=== PATIENT | female | born 1930 | race Caucasian/White ===

== ENCOUNTER 2017-09-15 05:48 | Day surgery (SDC) | payer OTHER ==
[~2017-09-15] VITALS: Ht 165.1 cm; Wt 70.0 kg
[~2017-09-15 05:48] MED LIST: ASPI325EC PO; BENZ100A PO; CILO50 PO; FLUSAL2505 IH; LEVFLO500 PO; LISHYD2025 PO; LOVA20 PO; MECL25 PO; Norco 5-325 Ta1 EACH PO; TOLT4 PO
[2017-09-15] MEDS ORDERED: ATOR20 PO (06:26)
== END 2017-09-15 08:15 | disposition home or self-care (01) ==
LOC: MHTC 05:48
PROC: 0JPT02Z Removal of Monitoring Device from Trunk Subcutaneous Tissue and Fascia, Open Approach (ICD-10-PCS; principal; 2017-09-15)
DX: Z45.09 Encounter for adjustment and management of other cardiac device (principal); R55 Syncope and collapse; I10 Essential (primary) hypertension; I73.9 Peripheral vascular disease, unspecified
CPT/HCPCS: 33284

== ENCOUNTER 2018-11-16 10:52 | Day surgery (SDC) | payer OTHER ==
[~2018-11-16] VITALS: Ht 165.1 cm; Wt 68.0 kg
[~2018-11-16 10:52] MED LIST changes: +ALBU90OI INH; +ATOR20 PO; +Fe C Tablet1 EACH PO; +NAPR220 PO; +OSTERA TABLET1 EACH PO
--- NOTE | 2018-11-16 15:02 | NUR ---
ASSUMED CARE: PT BROUGHT FROM [facility] [place] WITH BILATERAL GROIN SITES. LEFT WITH HERB DRESSING, RIGHT WITH ANGIOCELE. BOTH SITES SOFT, NONTENDE, NO SIGNS OF HEMATOMA AT THIS TIME. CALL TO DR LINN FOR CLARIFICATION OF ORDERS. [facility] STATES PT IS EXTENDED RECOVERY AND THEY WILL BRING FURTHER ORDERS. NO FURTHER NEEDS AT THIS TIME.
--- NOTE | 2018-11-16 15:37 | NUR ---
PT'S DAUGHTER ARRIVED AND WAS GIVEN UPDATE ON PLAN FOR RECOVERY AND DISCHARGE. PT'S GROIN SITES REMAIN SOFT, NONTENDER, NO HEMATOMA. VSS
--- NOTE | 2018-11-16 16:32 | NUR ---
NOTED NEW ORDERS FROM DR LINN. CALL TO CONTROL ROOM FOR CLARIFICATION. SPOKE WITH DR LINN WHO STATES HE WILL BE BY TO SEE PT IN A FEW HOURS. DISCUSSED WITH PT AND DAUGHTER. PT'S SITES REMAIN CLEAN WITH NO SIGN OF SWELLING OR HEMATOMA. PULSES NOTED BILATERAL FEET. FIELD AGRONOMIST AWARE
--- NOTE | 2018-11-16 18:37 | NUR ---
PT SAT UP IN BED AFTER FOUR HOURS AND ATE DINNER. SHE THEN WALKED AROUND THE ROOM WITH ASSISTANCE OF THE WALKER. PT AND DAUGHTER WAITING IN ROOM FOR DR LINN TO COME SEE PT DUE TO HIM STATING HE WANTED TO SEE HER PRIOR TO DISCHARGE
--- NOTE | 2018-11-16 19:15 | NUR ---
ASSUMED CARE RECEIVED REPORT FROM [facility]. PT IS COMPLETELY ALERT AND ORIENTED; AND IS ANXIOUS ABOUT DISCHARGE. THE PLAN IS TO WAIT FOR [facility] TO SEE PT. NO OTHER COMPLAINTS AT THIS TIME. VITALS STABLE, PT'S DAUGHTER AT BEDSIDE. BED LOW AND LOCKED AND CALL LIGHT WITHIN REACH.
--- NOTE | 2018-11-16 19:30 | NUR ---
UPDATE PT'S GROIN SITES (BILATERAL) ARE SOFT, NONTENDER AND SHOW NO SIGN OF HEMATOMA FORMATION. PEDAL PULSES ARE 2+ BILATERALLY. SKIN IS WARM TO TOUCH, AND PT REPORTS NO PAIN OR N/T.
--- NOTE | 2018-11-16 19:48 | NUR ---
UPDATE CALLED DR. LINN FOR AN UPDATE REGARDING THE PT'S DISCHARGE STATUS, AND HE INFORMED ME THAT HE WILL BE IN THERE SOON TO ASSESS PT.
--- NOTE | 2018-11-16 20:33 | NUR ---
[facility]/DISCHARGE [facility] IN TO SEE PT, GROIN SITES ARE CDI, SOFT AND NONTENDER, NO HEMATOMA FORMATION, DISCHARGE INSTRUCTIONS WERE REVIEWED, AND A PLAN TO FOLLOW UP HAS BEEN MADE. IV HAS BEEN REMOVED, SITE LOOKED CDI, NO SIGNS OF INFILTRATION. PT HAS ALL HER BELONGINGS, AND DAUGHTER PRESENT TO TAKE HER HOME. PT LEFT IN WHEELCHAIR AT 2030.
== END 2018-11-16 20:49 | disposition home or self-care (01) ==
LOC: MHTC 10:52 → ICUE 14:40 → MHTC 20:49
DX: I70.203 Unspecified atherosclerosis of native arteries of extremities, bilateral legs (principal); I70.8 Atherosclerosis of other arteries
CPT/HCPCS: 36245; 37221; 75625; 75710; 75716; 75774; 85347; 87081; 99152; 99153; C1760; C1769; C1876; C1887; C1894; J1644; J2250; J3010; J7030; Q9967

== ENCOUNTER → 2019-01-09 | Outpatient (CLI) | payer OTHER ==
[2019-01-09 17:47] LABS: BASOPHILS ABSOLUTE AUTO 0.07 K/mm3 (0.00-0.23); BASOPHILS PERCENT AUTO 1 % (0-2); EOSINOPHILS ABSOLUTE AUTO 0.41 K/mm3 (0.00-0.68); EOSINOPHILS PERCENT AUTO 5 % (0-6); Hematocrit 37.6 % (33.0-51.0); Hemoglobin 12.5 g/dL (11.5-16.0); IMMATURE GRAN ABSOLUTE AUTO 0.04 K/mm3 (0.00-0.10); IMMATURE GRAN PERCENT AUTO 1 % (0-1); LYMPHOCYTES ABSOLUTE AUTO 1.89 K/mm3 (0.84-5.20); LYMPHOCYTES PERCENT AUTO 25 % (21-46); MONOCYTES ABSOLUTE AUTO 0.68 K/mm3 (0.16-1.47); MONOCYTES PERCENT AUTO 9 % (4-13); Mean Corpuscular HGB Conc 33.2 g/dL (31.5-36.5); Mean Corpuscular Volume 105 fL (80-100); Mean Platelet Volume 11.3 fL (9.1-12.4); NEUTROPHILS ABSOLUTE AUTO 4.52 K/mm3 (1.96-9.15); NEUTROPHILS PERCENT AUTO 60 % (41-73); Platelet Count 281 K/mm3 (150-400); RDW Coefficient Variation 14.1 % (11.7-14.2); RDW Standard Deviation 55.3 fL (35.1-46.3); Red Blood Cell Count 3.57 M/mm3 (3.80-5.20); White Blood Cell Count 7.61 K/mm3 (4.00-11.30)
[2019-01-09 18:11] LABS: Alanine Aminotransfer (ALT/SGP 21 U/L (12-78); Albumin, Blood 4.1 g/dL (3.4-5.0); Albumin/Globulin Ratio 1.3 (0.8-1.8); Alk Phos 54 U/L (50-136); Anion Gap 5 mmol/L (6-16); Aspartate Aminotrans (AST/SGOT 23 U/L (12-37); Bilirubin, Total 0.3 mg/dL (0.1-1.0); Blood Urea Nitrogen 20 mg/dL (8-24); CO2, Blood 26 mmol/L (21-32); Calcium, Blood 9.3 mg/dL (8.5-10.1); Chloride, Blood 106 mmol/L (98-108); Globulin, Blood 3.2 g/dL (2.2-4.0); Glomerular Filtration Rate >60 (60-); Glucose, Blood 92 mg/dL (70-99); Potassium, Blood 3.8 mmol/L (3.5-5.5); Sodium, Blood 137 mmol/L (136-145); Total Protein, Blood 7.3 g/dL (6.4-8.2)
== END | disposition home or self-care (01) ==
LOC: LAB 17:42 → LAB SHORT 17:42
PROVIDERS: Physician Assistant
DX: R21 Rash and other nonspecific skin eruption (principal)
CPT/HCPCS: 80053; 85025

== ENCOUNTER 2019-05-10 07:47 | Day surgery (SDC) | payer OTHER ==
[~2019-05-10] VITALS: Ht 165.1 cm; Wt 68.0 kg
[2019-05-10] MEDS ORDERED: LOVA40 PO (08:29)
--- NOTE | 2019-05-10 12:26 | NUR ---
PT REPORTS DISCOMFORT TO L UPPER LEG/THIGH AREA. WARM COMPRESS AND READJUSTED ON GURNEY. PT REPORTS, "THAT HELPED SOME" VSS. BILATERAL GROIN SITES REMAIN CLEAR. SOFT, AND NON TENDER. VSS. CALL LIGHT WITHIN REACH.
--- NOTE | 2019-05-10 13:10 | NUR ---
AMBULATED TO BATHROOM. TOLERATED WELL. NO BLEEDING AT SITES.
--- NOTE | 2019-05-10 13:30 | NUR ---
DRESSING FOR DISCHARGE. SITES UNCHANGED. DISCHARGE INSTRUCTIONS GIVEN WITH VERBAL AND WRITTEN UNDERSTANDING.
--- NOTE | 2019-05-10 13:35 | NUR ---
IV REMOVED INTACT. 2X2,COBAN AND MANUAL PRESSURE APPLIED.
--- NOTE | 2019-05-10 13:50 | NUR ---
DISCHARGED [facility] WHEELCHAIR. DAUGHTER DRIVING.
== END 2019-05-10 13:50 | disposition home or self-care (01) ==
LOC: MHTC 07:47
DX: I70.212 Atherosclerosis of native arteries of extremities with intermittent claudication, left leg (principal); I10 Essential (primary) hypertension; J44.9 Chronic obstructive pulmonary disease, unspecified; I25.9 Chronic ischemic heart disease, unspecified; I25.10 Atherosclerotic heart disease of native coronary artery without angina pectoris; Z95.810 Presence of automatic (implantable) cardiac defibrillator; Z88.2 Allergy status to sulfonamides; Z79.82 Long term (current) use of aspirin; Z79.51 Long term (current) use of inhaled steroids; Z79.899 Other long term (current) drug therapy
CPT/HCPCS: 36200; 37228; 75710; 75716; 75774; 85347; 87081; 99152; 99153; C1725; C1769; C1887; C1894; J1644; J2250; J3010; J7030; Q9967